=== PATIENT | female | born 1960 | race Caucasian/White ===

== ENCOUNTER 2016-06-03 15:41 | Inpatient (IN) | payer OTHER ==
--- NOTE | ~2016-06-03 | BMI ---
[facility] Nutrition Therapy DATE: 06/04/16 Patient: MALGORZATA Bah MUÑOZ Physician: JOSSELIN Address: [address] [place] [address] Room/Bed: [address] [place] [address], Zip: [place] [address] Admit Date: 06/03/16 Date of : [birth year] Height: 5 5 Weight: 269 122.4 HIGH BMI NOTE: DX: 55 yo female admitted for SOA ANTHROPOMETRICS: 5'5", WT: 122.4 kg, BMI: 44.9 INTERVENTION: 1. CC RECOMMENDATIONS: 1. Add a HH diet restriction to promote wt loss Respectfully, BINU ZAMORANO RD, LD Food and Nutritional Services [facility] cc: client file
--- NOTE | ~2016-06-03 | CO ---
Unit #: [id number] #: [id number] Patient: MALGORZATA ORDOÑEZ [id number] [address] [place], [place] [address] [id number] I MR#: [id number] NAME: MALGORZATA ORDOÑEZ. ROOM: 224 Age: 55 Sex: F Admission Date: 06/03/2016 : 1960 Attending Physician: Ranjit Haskins M.D. Primary Care Physician: No Primary Care Physician CONSULTATION REPORT HISTORY OF PRESENT ILLNESS Ms. Ordoñez is a 55-year-old white female that we have seen in the hospital for lung disease. She has been admitted in the past through HIPS service and Dr. Gutierrez. For some reason in January, we were called to admit the patient which we did. We were called this time. My partner was called last night to admit Ms. Ordoñez and admission orders were given. I am now seeing her the following day. Ms. Ordoñez, I believe, is seen in our office obstructive sleep apnea. She was to have a sleep study, pulmonary function tests. She also had a cavitary nodule that needed a followup CT scan. I do not know that she has followed up for all those studies at this point. Apparently, she is being followed by [facility] and has been diagnosed with pneumonia three times over the last month and a half. She tells me she has been on three courses of antibiotics and two courses of prednisone. She said she has not felt right since the first of the year. She has had some cough and wheezing and shortness of breath. She presented to the emergency room and according to the ER note was wheezing, had audible wheezing. Her O2 saturation was recorded at 95% on room air. Temperature was 99. Chest x-ray showed no infiltrate, mass, or congestion. She was given Solu-Medrol 125 mg IV and 40 mEq of potassium. Her potassium level was, I believe, 2.5. PAST MEDICAL HISTORY 1. COPD. 2. Diabetes. 3. Morbid obesity. 4. Obstructive sleep apnea. 5. Hyperlipidemia. 6. Anxiety and depression. 7. Seizure disorder. 8. Nonobstructive coronary artery disease. PAST SURGICAL HISTORY 1. Oophorectomy. 2. Cholecystectomy. 3. Colonoscopy. ALLERGIES Sulfa. HOME MEDICATIONS 1. Acetazolamide. 2. Xanax. 3. Norvasc. 4. Butorphanol spray nasally. Unit #: [id number] #: [id number] Patient: MALGORZATA ORDOÑEZ 5. Flexeril. 6. Pepcid. 7. Prozac. 8. Veramyst. 9. Glucotrol. 10. Lortab 5/325. 11. Glucophage. 12. Phenergan. 13. Seroquel. 14. Symbicort. 15. Topamax. 16. Ventolin. 17. Victoza. FAMILY HISTORY Negative for lung disease. SOCIAL HISTORY Recently a reformed smoker, used to smoke two packs a day. Denies alcohol or illicit drugs. Note: She has started smoking again but had stopped earlier this year. She smokes half pack a day now. REVIEW OF SYSTEMS CONSTITUTIONAL: No fevers and chills. HEENT: No rhinorrhea, nasal congestion. PULMONARY: Short of breath, wheezing. CARDIAC: No chest pain or palpitations. GASTROINTESTINAL: No nausea, vomiting. GENITOURINARY: No hematuria, dysuria. ENDOCRINE: Does have diabetes. No thyroid disease. NEUROLOGIC: No unilateral weakness or numbness. Does have history of seizures, seen by Dr. Rizvi in the past. She does have SANA, is not currently on CPAP. Apparently, had CPAP titration, she tells me. SKIN: No lesions. PHYSICAL EXAMINATION GENERAL: Morbidly obese female, currently no distress. Able to speak in complete sentences. VITAL SIGNS: Blood pressure is 121/65, pulse 95, respiratory rate 18, afebrile. HEENT: Normocephalic and atraumatic. Pupils equal, round, and reactive. Sclerae nonicteric. Nasal passages patent. Posterior pharynx clear. Mucous membranes moist. NECK: Supple. Trachea midline. No cervical or supraclavicular lymphadenopathy. LUNGS: Reveal mild expiratory wheeze bilaterally. Prolonged expiratory phase. CARDIAC: Regular rate and rhythm. Could not appreciate murmur, rub, or gallop. ABDOMEN: Nontender. Bowel sounds present. No hepatosplenomegaly. EXTREMITIES: Without clubbing, cyanosis, or edema. NEUROLOGIC: Awake, alert, oriented x3. Cranial nerves intact. Muscle strength symmetric bilaterally. PSYCHIATRIC: Affect calm. SKIN: Warm and dry. IMPRESSION 1. Acute exacerbation of chronic obstructive pulmonary disease. Unit #: [id number] #: [id number] Patient: MALGORZATA ORDOÑEZ 2. Acute and chronic respiratory failure. 3. History of cavitary nodule on previous CT scan from October 2015. 4. Obstructive sleep apnea, recently undergoing polysomnography and CPAP titration, awaiting CPAP from [email or web address]. 5. Diabetes. 6. Hypertension. 7. Morbid obesity. 8. Hypokalemia. PLAN 1. Potassium supplementation. 2. Bronchodilators. 3. Steroids. 4. Cover with antibiotics. 5. Sliding scale insulin. 6. Check chest CT for followup of cavitary nodule. 7. Will follow with you. Further recommendations. Dictated by... Eder Mendez/quincy TD: 06/06/2016 16:21 JOB #: [id number] CC: Eder Schulte M.D. [facility] CONSULTATION REPORT X Russell Snyder MD X CONSULTATION REPORT
--- NOTE | ~2016-06-03 | EKG ---
PATIENT: MALGORZATA MUÑOZ UNIT #: [id number] Ventricular Rate: 98 BPM Atrial Rate: 98 BPM P-R Interval: 188 ms QRS Duration: 118 ms Q-T Interval: 390 ms QTC Calculation(Bezet): 497 ms P [place]: 93 degrees Calculated R [place]: -67 degrees Calculated T [place]: 100 degrees Diagnosis Line: Normal sinus rhythm Diagnosis Line: Left axis deviation Diagnosis Line: Cannot rule out Inferior infarct , age Diagnosis Line: undetermined Diagnosis Line: Anterolateral infarct , age undetermined Diagnosis Line: Abnormal ECG Diagnosis Line: When compared with ECG of 09-FEB-2016 00:38, Diagnosis Line: Significant changes have occurred Diagnosis Line: Confirmed by JOHNNY POLLACK MD ([id number]) on 06/03/2016 Diagnosis Line: 5:48:50 PM INTERPRETING MD: JAKI LAMBERT
--- NOTE | ~2016-06-03 | CR63 ---
[facility] A Service of [facility] & [facility] RADIOLOGY TEXT RESULTS PATIENT: MALGORZATA MUÑOZ LOCATION: [facility] : [birth year] UNIT #: [id number] AGE: [address]: Ranjit Haskins MD SEX: F ORDER DR: [id number] [facility] [address] [facility]. [place], [place] [address] [id number] I MR#: [id number] Acc #: [id number] NAME: MALGORZATA MUÑOZ. : 1960 SEX: F STUDY DATE/TIME: 06/04/2016 7:36 UNIT: [facility] ROOM: [facility] STUDY DESCRIPTION: CR Chest 2 View Attending Physician: Ranjit Haskins M.D. Ordering Physician: Russell Snyder M.D. Primary Care Physician: Primary Care Physician No MEDICAL IMAGING REPORT This report is preliminary unless electronic signature is present EXAM Chest 2 views 06/04/2016 HISTORY Short of air. FINDINGS PA and lateral radiographs of the chest are presented. The patient gives additional history of shortness of air for 5 days. Prior history of asthma. Pneumonia. Comparison 06/03/2016. No acute pulmonary disease. No pleural effusion or pneumothorax. Lung volumes normal. No suspicious nodule. Heart and mediastinum normal in size and contour. Degenerative changes in the spine but no acute-appearing bony abnormality. Surgical clips in the upper abdomen probably from prior cholecystectomy. Dictated by... Eleazar Fernandez M.D. THIS IS AN ELECTRONICALLY VERIFIED REPORT Eleazar Fernandez M.D. at 06/04/2016 5:53 PM CHARLES/prabhakar TD: 06/04/2016 11:17 JOB #: [id number] MEDICAL IMAGING REPORT COPY
--- NOTE | ~2016-06-03 | CT57 ---
[facility] A Service of [facility] & [facility] RADIOLOGY TEXT RESULTS PATIENT: MALGORZATA MUÑOZ LOCATION: [facility] - : 62 UNIT #: [id number] AGE: [address]: Ranjit Haskins MD SEX: F ORDER DR: [id number] [facility] [address] [facility]. [place], [place] [address] [id number] I MR#: [id number] Acc #: [id number] NAME: MALGORZATA MUÑOZ. : 1960 SEX: F STUDY DATE/TIME: 06/04/2016 16:45 UNIT: C2A ROOM: [facility] STUDY DESCRIPTION: CT Chest Wo Cont Attending Physician: Ranjit Haskins M.D. Ordering Physician: Russell Snyder M.D. Primary Care Physician: No Primary Care Physician MEDICAL IMAGING REPORT This report is preliminary unless electronic signature is present EXAM CT chest without contrast. HISTORY Short of air for 5 days. Cough and wheezing. COMPARISON STUDIES CT chest without contrast is compared to CT chest, 11/10/2015 and 03/30/2014 and 12/22/2013. TECHNIQUE This CT exam was performed with one or more of the following radiation dose reduction techniques: automatic exposure control, adjustment of mA and/or kV according to patient size, and iterative reconstruction. FINDINGS A patchy nodule in the posterior right lower lobe measures 10 mm in maximal dimension, and is stable, compared to 12/22/2013 and 11/10/2015. No focal infiltrates. No pleural effusions. Minimal subsegmental atelectasis in the inferior lingula. No adenopathy. No pericardial thickening or effusion. Normal caliber thoracic aorta. Mild splenic enlargement measuring close to 15 cm in AP dimension. IMPRESSION 1. 10-mm part solid nodule in the posteroinferior right lower lobe is stable, compared to prior CTs, 11/10/2015 and 12/22/2013. Follow-up CT chest in 1 year is recommended to ensure stability. 2. No new pulmonary nodule, mass, or infiltrate. No pleural effusions. 3. No adenopathy. 4. Splenic enlargement measuring nearly 15 cm in AP dimension. Cholecystectomy. STS. [facility] A Service of [facility] & [facility] RADIOLOGY TEXT RESULTS PATIENT: MALGORZATA MUÑOZ LOCATION: [place] [address] : [birth year] UNIT #: [id number] AGE: [address]: Ranjit Haskins MD SEX: F ORDER DR: Dictated by... Bryce Anderson M.D. THIS IS AN ELECTRONICALLY VERIFIED REPORT Bryce Anderson M.D. at 06/05/2016 10:40 PM SINAN/fang TD: 06/05/2016 12:09 JOB #: [id number] MEDICAL IMAGING REPORT COPY
--- NOTE | ~2016-06-03 | DS ---
Unit #: [id number] #: [id number] Patient: MALGORZATA MUÑOZ [id number] [address] [place], [place] [address] [id number] I MR#: [id number] NAME: MALGORZATA MUÑOZ. ROOM: 224 Age: 55 Sex: F Admission Date: 06/03/2016 : 1960 Discharge Date: 06/09/2016 Attending Physician: Ranjit Haskins M.D. Primary Care Physician: Primary Care Physician No DISCHARGE SUMMARY DISCHARGE DIAGNOSES 1. Exacerbation of asthma. 2. Acute on chronic respiratory failure, hypoxemic. 3. History of right lower lobe nodule, stable, needs followup CT scan in 1 year. 4. Obstructive sleep apnea, not yet started on CPAP 15. 5. Diabetes mellitus. 6. Morbid obesity. 7. Seizure disorder. 8. Anxiety and depression. 9. Nonobstructive coronary artery disease. 10. Possible paradoxical vocal cord dysfunction. DISCHARGE MEDICATIONS Albuterol inhaler 2 puffs every 4 hours as needed, Symbicort 160/4.5 2 puffs b.i.d., Topamax 200 mg b.i.d., Prozac 40 mg daily, metformin 500 mg daily, Phenergan 25 q.6 hours as needed for nausea, Phenergan with dextromethorphan cough syrup 1 teaspoon q.8 hours as needed, Seroquel 300 mg q.h.s., Xanax 0.5 b.i.d., Diamox 250 mg b.i.d., Norvasc 10 mg daily, Veramyst nasal spray 2 sniffs to each nostril daily, Pepcid 10 mg p.o. daily, Lortab 5/325 every 12 hours as needed for pain, butorphanol one spray to each nostril as needed for migraines, Flexeril 10 q.8 hours as needed, Glucotrol 10 mg daily, and Victoza 0.6 mg subcu q.h.s., no antibiotics required as she has received 7 days already, prednisone 40 mg q.a.m. x3 days, decrease by 10 mg every 3 days until off. DISCHARGE INSTRUCTIONS She is to call to get her CPAP setup at home. She has home oxygen. She may wear that as needed. We will evaluate her as an outpatient if she still requires home oxygen. She is to follow up in my office in 1 month. She has been followed by [facility] and through Dr. Pate's office as her primary care physician, but is changing primary care physician, I have given her the name of primary medical, Dr. Thomason and she will contact him. We will not fill her any other medicines other than her pulmonary medications and we are not her primary care physicians. We are happy to see her for her pulmonary problems in the hospital and in the office. HOSPITAL COURSE A 55-year-old female with a history of obstructive lung disease who was admitted to our group for exacerbation of obstructive airways disease. In the past, she had been admitted through the HIPS office, but for some reason, the emergency room has called us for the last 2 times to admit her, although we are not her primary care physicians. She is followed in Unit #: [id number] #: [id number] Patient: TONIMALGORZATA G our office for obstructive sleep apnea. She also has a nodule in her right lower lobe and does have some obstructive airways disease. To my recollection, pulmonary function tests done most recently revealed no obstruction and a normal DLCO. She was recently diagnosed with obstructive sleep apnea and was set up to start CPAP, but presented to the hospital because of increased shortness of breath. On arrival, her chest x-ray showed no acute infiltrate, mass or congestion. O2 saturation was recorded at 95% on room air. She was in some respiratory distress with audible wheezing and use of accessory muscles. She was admitted. She has been treated with inhaled bronchodilators, IV Solu-Medrol, covered with antibiotics in the form of Zithromax. She was covered with sliding scale insulin and was started on DVT prophylaxis. She has had decrease in her wheezing. Arterial blood gases on room air were done on the and revealed pH of 7.39, pCO2 of 41, pO2 of 63.8. Chemistries were fairly unremarkable. Her last blood sugars were 251, 141, 259 and 146. She has been advised to stay on a diabetic diet. Her steroids have been weaned. She will be tapered off prednisone. She did have a CT scan of the chest done for her right lower lobe nodule, which revealed a 10 mm solid nodule in the posteroinferior right lower lobe, stable compared to 10/2015 and 11/2013. A followup CT was recommended in 1 year. She will follow up in our office. We will evaluate for home O2. She will follow up in the office in 1 month. We will check ambulatory pulse oximetry and monitor compliant step for obstructive sleep apnea. Dictated by... Eder Mendez/gaby TD: 06/11/2016 04:48 JOB #: [id number] CC: Del Thomason M.D. DISCHARGE SUMMARY X Russell Snyder MD X DISCHARGE SUMMARY
--- NOTE | ~2016-06-03 | CR72 ---
[facility] A Service of [facility] & [facility] RADIOLOGY TEXT RESULTS PATIENT: MALGORZATA MUÑOZ LOCATION: [place] [address] : [birth year] UNIT #: [id number] AGE: [address]: Ranjit Haskins MD SEX: F ORDER DR: [id number] [facility] [address] [facility]. [place], [place] [address] [id number] I MR#: [id number] Acc #: [id number] NAME: MALGORZATA MUÑOZ. : 1960 SEX: F STUDY DATE/TIME: 06/03/2016 15:00 UNIT: CEDOF ROOM: 35634 STUDY DESCRIPTION: CR Chest Single View Portable Attending Physician: Ranjit Haskins M.D. Ordering Physician: Ed Anish Medley M.D. Primary Care Physician: No Primary Care Physician MEDICAL IMAGING REPORT This report is preliminary unless electronic signature is present EXAM Single view chest INDICATIONS Shortness of air for 5 days. Hypertension. FINDINGS Single portable AP view of the chest compared to 02/09/2016. Heart and mediastinal contours normal. The lungs are clear. No pleural effusion. IMPRESSION No acute cardiopulmonary findings. Dictated by... Ramirez Muñoz M.D. THIS IS AN ELECTRONICALLY VERIFIED REPORT Ramirez Muñoz M.D. at 06/04/2016 8:18 AM HASEEB/vasile TD: 06/03/2016 19:01 JOB #: [id number] MEDICAL IMAGING REPORT COPY
[~2016-06-03 15:41] MED LIST: ACCUPRIL PO; ACETAMINOPHEN PO; ACETAMINOPHEN325 MG PO; ACETAMINOPHEN650 M3 PO; ACETAZOLAMIDE PO; ACETAZOLAMIDE125 MG PO; ACETAZOLAMIDE250 MG PO; ACETAZOLAMIDE500 M1 PO; ACID CONTROLLER20 MG PO; ACTOS PO; ALB/IPRATROPIUM/1 E1 INH; ALB/IPRATROPIUM/1 E2 INH; ALBUTEROL; ALBUTEROL MININEB NEB; ALBUTEROL17 G1 IH; ALBUTEROL17 GM INH; ALPRAZOLAM PO; ALPRAZOLAM0.5 MG; AMLODIPINE BESY10 MG PO; ASMACORT; ASMANEX0.24 G1 IH; ASPIRIN81 M1 PO; ASTHMACORT; ASTHMACORT INHALER INH; ASTHMANEX; ATENOLOL PO; ATROVENT NEB; AUGMENTIN875 MG PO; BACLOFEN10 MG PO; BUTORPHANOL10 MG/ML NS; COMBIVENT MININEB INH; COMBIVENT RESPIM4 GM; DIAMOX PO; DIAMOX SEQUELS500 MG PO; DOXYCYCLINE HY100 M3 PO; DOXYCYCLINE PO; DUONEB 2.5-0.5 M3 ML; DUONEB 2.5-0.5 M3 ML NEB; DUONEB INH; DUONEB NEB; ESGIC CAPSULE1 CAP PO; FAMOTIDINE PO; FAMOTIDINE20 M1 PO; FAMOTIDINE20 MG PO; FELDENE20 MG PO; FLEXERIL PO; FLEXERIL10 MG PO; FLONASE 0.05% N16 G1; FLOVENT HFA12 G1; FLUTICASONE PRO16 GM NS; GLIPIZIDE10 MG PO; GLUCOPHAGE500 M1 PO; GLUCOTROL PO; GLUCOTROL10 MG PO; Glipizide PO; HUMALOG KW200 UNIT/1 SUBQ; HUMIBID-LA600 MG PO; HUMULIN R INSULIN SUBQ; HUMULIN R100 U/ML SUBQ; HYDROCODONE APAP; HYDROCODONE-APA1 T30 PO; HYDROCODONE-APA1 T43 PO; HYDROCODONE/A1 UDTA2 PO; K-DUR10 MEQ PO; K-DUR20 ME1; KEPPRA1000 MG PO; KEPPRA750 MG PO; LEVAQUIN PO; LEVAQUIN750 M1 PO; LEVAQUIN750 MG PO; LEVETIRACETAM1000 MG PO; LORTAB 5/500 TA1 TA2 PO; LORTAB 7.51 TAB 7.5/ PO; METFORMIN HCL500 M1 PO; MININEB INH; MORGIDOX100 MG PO; NICOTINE TRANSD14 MG EXT; NORVASC10 MG PO; NOVOLOG100 U/M1 SUBQ; OXYGEN; PEPCID AC20 MG PO; PERCOCET5/325 PO; PERFOROMIS20 MCG/2 M; PHENERGAN PO; PHENERGAN25 M1 PO; PHENERGAN25 MG PO; PRAVACHOL PO; PRAVACHOL20 MG PO; PRAVASTATIN SOD20 MG PO; PREDNISONE PO; PREDNISONE10 MG PO; PREDNISONE10 MG/DOSE; PREDNISONE10 MG/DOSE PO; PROMETHAZINE W118 M1 PO; PROTONIX PO; PROVENTIL HFA INH; PROZAC PO; PROZAC40 M1 PO; PROZAC40 MG PO; PULMICORT180 MCG/AE IH; QVAR 80 MCG INH; QVAR7.3 G1 IH; REGLAN10 MG PO; ROBITUSSIN; SEROQUEL PO; SEROQUEL XR150 MG PO; SEROQUEL XR200 MG; SEROQUEL XR200 MG PO; SEROQUEL XR300 M1 PO; SEROQUEL XR300 MG PO; SIMVASTATIN20 MG PO; SKELAXIN PO; SPIRIVA18 MCG INH; STADOL NASAL SPRAY; STADOL NS; STADOL NS25 MG; STADOL NS25 MG NS; SYMBICORT INH; SYMBICORT INHALER; SYMBICORT80 INH; TOPAMAX PO; TOPAMAX200 MG PO; TOPIRAMATE200 M1 PO; TOPIRAMATE25 MG PO; TOPIRAMATE50 MG PO; TRAZODONE PO; ULTRAM PO; VANTIN100 MG PO; VENTOLIN5 MG/ML; VIBRAMYCIN100 M1 PO; VICODIN 5-3001 EACH PO; VITAMIN D1000 UNI1; VITAMIN D2400 UNIT; XANAX0.5 M1 PO; XANAX1 MG PO; ZANAFLEX PO; ZITHROMAX PO; ZOCOR20 MG PO; [UNRECOGNIZED DRUG - OTHER] IH; [UNRECOGNIZED DRUG - OTHER] INH
[2016-06-03 15:50] LABS: BASOPHIL# 0.1 X10e3 (0-0.3); BASOPHIL% 0.7 % (0-2.5); EOSINOPHIL# 0.5 X10e3 (0-0.7); EOSINOPHIL% 4.4 % (0.0-7.0); HEMATOCRIT 49.3 % (35.0-45.0); HEMOGLOBIN 16.1 gm/dL (12.0-16.0); LYMPHOCYTE# 2.7 X10e3 (1.0-3.5); LYMPHOCYTE% 22.3 % (17.0-45.0); MEAN CELL VOLUME 91.4 FL (83-96); MEAN CORPUSCULAR HEMOGLOBIN 29.9 PG (28-34); MEAN CORPUSCULAR HGB CONC 32.7 g/dL (30-36); MEAN PLATELET VOLUME 8.4 FL (6.5-11.5); MONOCYTE# 0.9 X10e3 (0-1.0); MONOCYTE% 7.9 % (3.0-12.0); NEUTROPHIL# 7.7 X10e3 (1.5-7.1); NEUTROPHIL% 64.7 % (40-75); PLATELET COUNT 288 X10e3 (140-420); RED CELL DISTRIBUTION WIDTH 14.7 % (11.0-15.5); WHITE BLOOD COUNT 11.9 X10e3 (4.0-10.5)
[2016-06-03 15:51] LABS: POC - CKMB <1.0 ng/mL (0.0-7.9); POC - TROPONIN <0.05 ng/mL (<=0.05)
[2016-06-03 15:53] LABS: DIFF IND NO
[2016-06-03 16:17] LABS: ALBUMIN SERUM 3.6 g/dL (3.5-5.0); ALKALINE PHOSPHATASE 134 U/L (32-92); ALT (SGPT) 17 U/L (10-40); AST (SGOT) 20 U/L (10-42); BILIRUBIN, DIRECT 0.1 mg/dL (0.0-0.2); BILIRUBIN,INDIRECT 0.5 mg/dL (0.0-0.9); BILIRUBIN,TOTAL 0.6 mg/dL (0.2-2.0); BLOOD UREA NITROGEN 10 mg/dL (9-23); CARBON DIOXIDE 25 mmol/L (22-31); CHLORIDE 101 mmol/L (100-111); GLOM FILT RATE Estimated ABOVE60 mL/min (>60); GLUCOSE FASTING 168 mg/dL (70-110); PROTEIN TOTAL SERUM 7.5 g/dL (6.0-8.3); SODIUM 137 mmol/L (135-145)
[2016-06-03 16:20] LABS: POTASSIUM 2.5 mmol/L (3.5-5.1)
[2016-06-03] MEDS ORDERED: ACETAZOLAMIDE250 MG PO (16:48)
[2016-06-03] MEDS ORDERED: XANAX0.5 MG PO (16:49)
[2016-06-03] MEDS ORDERED: NORVASC10 MG PO (16:49)
[2016-06-03] MEDS ORDERED: BUTORPHANOL10 MG/ML (16:51)
[2016-06-03] MEDS ORDERED: FAMOTIDINE PO (16:52)
[2016-06-03] MEDS ORDERED: FLEXERIL10 MG PO (16:52)
[2016-06-03] MEDS ORDERED: VERAMYST10 GM (16:53)
[2016-06-03] MEDS ORDERED: PROZAC40 MG PO (16:53)
[2016-06-03] MEDS ORDERED: GLUCOTROL10 MG PO (16:54)
[2016-06-03] MEDS ORDERED: GLUCOPHAGE500 M1 PO (16:54)
[2016-06-03] MEDS ORDERED: LORTAB 5-325 M1 EACH PO (16:54)
[2016-06-03] MEDS ORDERED: PHENERGAN25 M1 PO (16:55)
[2016-06-03] MEDS ORDERED: PROMETHAZINE-D473 ML PO (16:56)
[2016-06-03] MEDS ORDERED: SEROQUEL XR300 M1 PO (16:56)
[2016-06-03] MEDS ORDERED: SYMBICORT INH (16:57)
[2016-06-03] MEDS ORDERED: TOPAMAX200 MG PO (16:57)
[2016-06-03] MEDS ORDERED: ALBUTEROL17 GM INH (16:58)
[2016-06-03] MEDS ORDERED: VICTOZA0.6 MG/0.1 SUBQ (17:00)
[2016-06-03 17:26] LABS: POC - CKMB <1.0 ng/mL (0.0-7.9); POC - TROPONIN <0.05 ng/mL (<=0.05)
[2016-06-04 18:05] LABS: BLOOD UREA NITROGEN 12 mg/dL (9-23); BUN/CREATININE RATIO 13.33; CALCIUM SERUM 8.8 mg/dL (8.4-10.2); CARBON DIOXIDE 23 mmol/L (22-31); CHLORIDE 109 mmol/L (100-111); CREATININE SERUM 0.9 mg/dL (0.6-1.4); GLOM FILT RATE Estimated ABOVE60 mL/min (>60); GLUCOSE FASTING 225 mg/dL (70-110); MAGNESIUM 1.5 mg/dL (1.6-3.0); POTASSIUM 3.2 mmol/L (3.5-5.1); SODIUM 140 mmol/L (135-145)
[2016-06-05 02:12] LABS: BLOOD UREA NITROGEN 16 mg/dL (9-23); BUN/CREATININE RATIO 17.77; CALCIUM SERUM 8.2 mg/dL (8.4-10.2); CARBON DIOXIDE 23 mmol/L (22-31); CHLORIDE 111 mmol/L (100-111); CREATININE SERUM 0.9 mg/dL (0.6-1.4); GLOM FILT RATE Estimated ABOVE60 mL/min (>60); GLUCOSE FASTING 380 mg/dL (70-110); MAGNESIUM 1.8 mg/dL (1.6-3.0); POTASSIUM 3.9 mmol/L (3.5-5.1); SODIUM 138 mmol/L (135-145)
[2016-06-06 07:05] LABS: BLOOD UREA NITROGEN 23 mg/dL (9-23); CALCIUM SERUM 8.3 mg/dL (8.4-10.2); CARBON DIOXIDE 23 mmol/L (22-31); CHLORIDE 109 mmol/L (100-111); GLOM FILT RATE Estimated ABOVE60 mL/min (>60); GLUCOSE FASTING 397 mg/dL (70-110); MAGNESIUM 2.1 mg/dL (1.6-3.0); POTASSIUM 3.8 mmol/L (3.5-5.1); SODIUM 140 mmol/L (135-145)
[2016-06-07 06:46] LABS: POTASSIUM 3.6 mmol/L (3.5-5.1)
[2016-06-07 12:10] LABS: ARTERIAL BLD GAS O2 SATURATION 92.2 % (90.0-100.0); ARTERIAL BLOOD GAS CARBOXY HB 0.4 %sat (0.0-9.0); ARTERIAL BLOOD GAS HCO3 25.3 mmol/L; ARTERIAL BLOOD GAS MET HB 0.9 %sat (0.0-2.0); ARTERIAL BLOOD GAS PCO2 41.5 mmHg (35.0-45.0); ARTERIAL BLOOD GAS pH 7.394 (7.350-7.450)
[2016-06-07 12:11] LABS: ARTERIAL BLOOD GAS ALLEN TEST NORMAL; ARTERIAL BLOOD GAS ART SITE RIGHT RADIAL; ARTERIAL BLOOD GAS DELIVERY ROOM AIR; ARTERIAL BLOOD GAS PO2 63.8 mmHg (80.0-100); ARTERIAL DRAW? YES
[2016-06-08 09:31] LABS: MAGNESIUM 2.1 mg/dL (1.6-3.0); POTASSIUM 3.7 mmol/L (3.5-5.1)
[2016-06-09 08:10] LABS: MAGNESIUM 2.1 mg/dL (1.6-3.0)
== END 2016-06-09 18:00 | disposition home or self-care (01) | DRG 189 ==
LOC: CED 15:41 → CEDOF 17:15 → C2A 19:57
PROVIDERS: Emergency Medicine; Internal Medicine
DX: J96.21 Acute and chronic respiratory failure with hypoxia (principal); R56.9 Unspecified convulsions; J44.1 Chronic obstructive pulmonary disease with (acute) exacerbation; J45.901 Unspecified asthma with (acute) exacerbation; Z68.41 Body mass index [BMI] 40.0-44.9, adult; F17.210 Nicotine dependence, cigarettes, uncomplicated; R91.1 Solitary pulmonary nodule; G47.33 Obstructive sleep apnea (adult) (pediatric); E66.01 Morbid (severe) obesity due to excess calories; F41.9 Anxiety disorder, unspecified; F32.9 Major depressive disorder, single episode, unspecified; I25.10 Atherosclerotic heart disease of native coronary artery without angina pectoris; J38.3 Other diseases of vocal cords; I10 Essential (primary) hypertension; E78.5 Hyperlipidemia, unspecified; E87.6 Hypokalemia; K21.9 Gastro-esophageal reflux disease without esophagitis; E11.9 Type 2 diabetes mellitus without complications; Z79.84 Long term (current) use of oral hypoglycemic drugs; Z88.2 Allergy status to sulfonamides; Z90.49 Acquired absence of other specified parts of digestive tract
CPT/HCPCS: 36415; 36600; 71010; 71020; 71250; 80048; 80076; 82553; 82803; 82947; 83735; 83880; 84132; 84484; 85025; 93005; 94640; 94760; 96374; 99285; J0456; J1815; J2920; J2930; J3475

== ENCOUNTER 2016-07-27 17:28 | Inpatient (IN) | payer OTHER ==
--- NOTE | ~2016-07-27 | CR63 ---
[facility] A Service of [facility] & [facility] RADIOLOGY TEXT RESULTS PATIENT: MALGORZATA MUÑOZ LOCATION: [place] [address] : [birth year] UNIT #: [id number] AGE: [address]: Russell Snyder MD SEX: F ORDER DR: [id number] [facility] [address] [facility]. [place], [place] [address] [id number] I MR#: [id number] Acc #: [id number] NAME: MALGORZATA MUÑOZ. : 1960 SEX: F STUDY DATE/TIME: 08/09/2016 8:20 UNIT: [facility] ROOM: [facility] STUDY DESCRIPTION: CR Chest 2 View Attending Physician: Russell Snyder M.D. Ordering Physician: Mandy Kuhn D.O. Primary Care Physician: Patito Gutierrez M.D. MEDICAL IMAGING REPORT This report is preliminary unless electronic signature is present EXAM PA and lateral chest. HISTORY Shortness of breath and elevated blood pressure since July 2. TECHNIQUE PA and lateral views of the chest are obtained. FINDINGS The cardiovascular configuration of the chest is normal and the lungs are clear. CONCLUSION 1. No active disease. Dictated by... Eleazar Barnett M.D. THIS IS AN ELECTRONICALLY VERIFIED REPORT Eleazar Barnett M.D. at 08/10/2016 7:27 AM SB/martha TD: 08/09/2016 13:20 JOB #: [id number] MEDICAL IMAGING REPORT Page 1 of 1 COPY
--- NOTE | ~2016-07-27 | BMI ---
[facility] Nutrition Therapy DATE: 07/28/16 Patient: MALGORZATA Bah MUÑOZ Physician: CHERI Address: [address] [place] [address] Room/Bed: [address], Zip: [place] [address] Admit Date: 07/27/16 Date of : [birth year] Height: 5 4 Weight: 233 106 HIGH BMI NOTE: DX: 55 Y.O. FEMALE ADMITTED FOR RESP FAILURE ANTHROPOMETRICS: 5'4", WT: 233# (106 KG), BMI: 40.0 DIET: NO DIET ORDER INTERVENTION: 1. NO DIET ORDER RECOMMENDATIONS: 1. ONCE MEDICALLY FEASIBLE, ADVANCE DIET INDICATED TO CC+HH TO PROMOTE GRADUAL WEIGHT LOSS TOWARDS HEALTHY BMI (19.0-25.0) OR +/-10%IBW RD WILL F/U PER PROTOCOL Respectfully, NEAL WHITTEN MS, RD, LD Food and Nutritional Services [facility] cc: client file
--- NOTE | ~2016-07-27 | A ---
[facility] Nutrition Therapy DATE: 08/06/16 Patient: MALGORZATA Bah MUÑOZ Physician: CHERI Address: [address] [place] [address] Room/Bed: [address] [place] [address], Zip: [place] [address] Admit Date: 07/27/16 Date of : [birth year] Height: 5 4 Weight: 256 116.2 NUTRITIONAL ASSESSMENT: REASON: LOS ASSESSMENT PT IS 55 Y.O. FEMALE ADMITTED FOR RESP FAILURE, ASTHMA EXAC PMH: SANA, COPD, DM, ASTHMA, HLD, ANXIETY, DEPRESSION, CAD, SEIZURE DISORDER, CHOLY Anthropometrics: 5'4", WT: 240# (PER PT) (109 KG), BMI: 41.2 -WEIGHTS HAVE RANGED 233-256# SINCE ADMIT Labs: GLU: 281, BUN: 32, ALB: 3.5 (ADMIT), A1c: 6.6 Meds: LEVEMIR, SOLU-MEDROL, NOVOLOG, GLUCOTOL, PEPCID, PHENERGAN I/O & Bowel function: 2735/2203 Skin Integrity: BILATERAL FEET TRACE EDEMA Assessment: CHART REVIEWED AND EVENTS NOTED. PT SEEN FOR LENGTH OF STAY ASSESSMENT (10 DAYS). PT REPORTS GOOD PO INTAKE AND APPETITE, NO C/O N/V/D. PT ADDS "I LOVE BREAKFAST FOODS". THIS RD PROVIDED WRITTEN AND VERBAL CC+ DIET EDUCATION. RD PROVIDED LIST OF FOODS TO AVOID/LIMIT AND FOODS TO EAT MORE OFTEN. RD EMPHASIZED IMPORTANCE OF ELIMINATING SUGAR-SWEETENED BEVERAGES. PT REPORTD DRINKING NUMEROUS DIET SODAS DAILY. RD ENCOURAGED WATER INTAKE (+ WAYS OF ADDING FLAVOR). PT DEMONSTRATED UNDERSTANDING OF THE TOPIC. PT REPORTED NO DIET QUESTIONS AT THIS TIME. RD TO REMAIN AVAILABLE. Dx: EXCESSIVE CALORIC INTAKE R/T LIFESTYLE AEB BMI OF 41.2. -ALTERED NUTRIENT UTILIZATION R/T PMH AEB NEED FOR THERAPEUTIC DIET ORDER. Intervention: 1. CC DIET 2. WRITTEN & VERBAL CC DIET EDUCATION Monitoring, Evaluation and Goals: 1. ORAL INTAKE; CONSUME >50% OF MEALS W/NO C/O N/V/D 2. WEIGHTS; PROMOTE GRADUAL WEIGHT LOSS TOWARDS HEALTHY BMI (19.0-25.0) OR +/-10%IBW 3. LABS; WNL MONITOR: -PO INTAKE/APPETITE -WEIGHTS [facility] Nutrition Therapy DATE: 08/06/16 Patient: MALGORZATA MUÑOZ Physician: CHERI Address: [address] [place] [address] Room/Bed: [address] [place] [address], Zip: [place] [address] Admit Date: 07/27/16 Date of : [birth year] Height: 5 4 Weight: 256 116.2 -EDUCATION NEEDS Recommendations: 1. RECOMMEND TO ADD HH TO CURRENT DIET ORDER ABOVE TO PROMOTE GRADUAL WEIGHT LOSS TOWARDS HEALTHY BMI (19.0-25.0) OR +/-10%IBW 2. CONSULT RD IF FURTHER DIET EDUCATION REQUESTED RD WILL F/U PER PROTOCOL PT IS MILDLY COMPROMISED Respectfully, NEAL WHITTEN MS, RD, LD Food and Nutritional Services [facility] cc: client file
--- NOTE | ~2016-07-27 | HP ---
Unit #: [id number] #: [id number] Patient: MALGORZATA MUÑOZ [id number] [address] [place], [place] [address] [id number] I MR#: [id number] NAME: MALGORZATA MUÑOZ. ROOM: [facility] Age: 55 Sex: F Admission Date: 07/27/2016 : 1960 Attending Physician: Russell Snyder M.D. Primary Care Physician: Patito Gutierrez M.D. HISTORY AND PHYSICAL DIAGNOSES 1. Asthma exacerbation. 2. Acute and chronic hypoxemic respiratory failure. 3. History of right lower lobe nodule, needs followup CT scan in May 2017. 4. History of obstructive sleep apnea, currently maintained on CPAP 15. 5. Diabetes. 6. Morbid obesity. 7. Seizure disorder. 8. Anxiety and depression. 9. Nonobstructive coronary artery disease. HISTORY OF PRESENT ILLNESS She presented with a three-day history of increased shortness of breath with wheezing, cough, brownish sputum. No fever or chills. She has had no hemoptysis or chest pain. In the emergency room, she was noted to be wheezing, was able to speak two or three words at a time. Her O2 saturation on 4 L was 97%, respiratory rate was 26, blood pressure was 157/104, pulse was 103, temperature was afebrile. Lab work revealed arterial blood gas on 6 L of 7.28, pCO2 of 56, pO2 of 140. On subsequent followup this morning after being on BiPAP but on 6 L was 7.26, pCO2 of 57, pO2 of 108. Glucose was 181, creatinine 0.7. Lactic acid 1.2. Coags were normal. Cardiac enzymes were negative. White count was 15,300, hematocrit 45.7, platelet count normal. We were called to admit the patient, although we are not her primary care physicians. She has previously been admitted by Dr. Hines and Dr. Black. PAST MEDICAL HISTORY 1. COPD. 2. Bronchospasm. 3. Diabetes. 4. Morbid obesity. 5. Obstructive sleep apnea on CPAP 15. 6. Hyperlipidemia. 7. Depression and anxiety. 8. Seizure disorder. 9. Nonobstructive coronary artery disease. PAST SURGICAL HISTORY 1. Oophorectomy. 2. Cholecystectomy. 3. Colonoscopy. ALLERGIES Unit #: [id number] #: [id number] Patient: MALGORZATA MUÑOZ Sulfa. HOME MEDICATIONS 1. Acetazolamide. 2. Norvasc. 3. Butorphanol. 4. Flexeril. 5. Pepcid. 6. Prozac. 7. Veramyst. 8. Glucotrol. 9. Glucophage. 10. Phenergan. 11. Seroquel. 12. Symbicort. 13. Topamax. 14. Ventolin. 15. Victoza. FAMILY HISTORY Negative for lung disease. SOCIAL HISTORY Stopped smoking about a week ago. Has smoked two packs a day, smoked for a long time. Denies alcohol or illicit drugs. Says she does not take narcotics but does take Klonopin. REVIEW OF SYSTEMS CONSTITUTIONAL: No fevers, chills. HEENT: No rhinorrhea, nasal congestion. PULMONARY: As noted. CARDIAC: No chest pain. GASTROINTESTINAL: Some nausea. No vomiting. GENITOURINARY: No hematuria, dysuria. ENDOCRINE: Does have a history of diabetes. No thyroid disease. NEUROLOGIC: Some history of seizure, has seen Dr. Rizvi in the past. Had an episode where she felt funny and urinated on herself and only lasted for a second or two prior to this admission. SKIN: No rashes. PHYSICAL EXAMINATION GENERAL: White female in no distress. VITAL SIGNS: Blood pressure 126/77, pulse 81, respiratory rate 11, afebrile. HEENT: Normocephalic and atraumatic. Pupils equal, round, and reactive. Sclerae nonicteric. Nasal passages patent. Posterior pharynx crowded. Mallampati III. Edentulous. NECK: Supple. Trachea midline. No cervical or supraclavicular lymphadenopathy. LUNGS: Reveal expiratory wheezes bilaterally. CARDIAC: Heart sounds distant. Regular rate and rhythm. Could not appreciate murmur, rub, or gallop. ABDOMEN: Nontender. Bowel sounds present. No hepatosplenomegaly. EXTREMITIES: Without clubbing, cyanosis, or edema. NEUROLOGIC: Awake, alert, oriented x3. Cranial nerves grossly intact. Muscle strength symmetric bilaterally. Affect calm. SKIN: Warm and dry. Unit #: [id number] #: [id number] Patient: MALGORZATA MUÑOZ DIAGNOSTIC STUDIES LABORATORY: Laboratory studies personally reviewed. IMAGING: Chest x-ray: Personally reviewed. No infiltrate, mass, or congestion. IMPRESSION 1. Acute and chronic respiratory failure: Currently maintained on oxygen at home. 2. Chronic obstructive pulmonary disease exacerbation. 3. Obstructive sleep apnea on CPAP. 4. Respiratory acidosis, secondary to bronchospasm. 5. Nonobstructive coronary artery disease. 6. Diabetes. 7. Hypertension. 8. Morbid obesity. 9. Seizure disorder. 10. Depression and anxiety. PLAN 1. Inhaled bronchodilators. 2. IV Solu-Medrol. 3. Cover with antibiotics. 4. BiPAP for ventilatory support. 5. Deep venous thrombosis prophylaxis. 6. Sliding scale insulin. 7. Further recommendations pending this. Dictated by Russell Snyder M.D. GUILLAUME/quincy TD: 07/28/2016 14:27 JOB #: [id number] HISTORY AND PHYSICAL Page 1 of 1 X Russell Snyder MD X HISTORY AND PHYSICAL
--- NOTE | ~2016-07-27 | DS ---
Unit #: [id number] #: [id number] Patient: MALGORZATA ORDOÑEZ [id number] [address] [place], [place] [address] [id number] I MR#: [id number] NAME: MALGORZATA ORDOÑEZ ROOM: 557 Age: 55 Sex: F Admission Date: 07/27/2016 : 1960 Discharge Date: Attending Physician: Russell Snyder M.D. Primary Care Physician: Patito Gutierrez M.D. DISCHARGE SUMMARY DISCHARGE DIAGNOSES 1. Acute on chronic hypoxemic hypercarbic respiratory failure. 2. Chronic obstructive pulmonary disease exacerbation. 3. Obstructive sleep apnea, maintained on CPAP. 4. Respiratory acidosis secondary to chronic obstructive pulmonary disease. 5. Nonobstructive coronary artery disease. 6. Diabetes mellitus. 7. Hypertension. 8. Seizure disorder. 9. Anxiety, depression. 10. Human immunodeficiency virus positive antigen, further workup pending. DISCHARGE MEDICATIONS Home O2, acetazolamide 250 mg b.i.d., Norvasc 10 mg daily, butorphanol one spray each nostril daily for her migraine headaches, Flexeril 10 mg p.o. q.8 hours, Prozac 40 mg b.i.d., Veramyst nasal spray two sniffs each nostril daily, Glucotrol 10 mg daily, Glucophage 500 mg daily, Phenergan 25 p.o. every 6 hours as needed, Seroquel XR 300 mg q.h.s., Symbicort 160/4.5 two puffs b.i.d., Topamax 200 mg b.i.d., Ventolin 2 puffs every 4 hours as needed, Victoza 0.6 mg subcu at bedtime, sliding scale insulin per protocol. Prednisone 40 mg for four days, decreased by 10 mg every four days until off. FOLLOWUP Follow up with Dr. Gutierrez in 1 week for results of HIV testing. Follow up with Dr. Snyder in 3 weeks for underlying COPD and SANA. HOSPITAL COURSE The patient admitted to the hospital with exacerbation of COPD and acute hypoxemic hypercarbic respiratory failure. She was initially treated with BiPAP, inhaled bronchodilators, IV steroids. She was covered with antibiotics in the form of Zithromax and Rocephin. She was placed on sliding scale insulin, DVT prophylaxis. She had slow, but gradual improvement. Mucomyst was added to her regimen with continued improvement. Her steroids were weaned. A tech was drawing blood and stuck herself and in the process of HIV test was done on Ms. Ordoñez which returned HIV antigen positive. Infectious Disease was consulted and studies are pending as far as confirmation of that positive study and viral load. Ms. Ordoñez denied any history of sexual contact or IV drug use or blood infusion. Her lungs have been sufficiently improved where she can be discharged on tapering dose of steroids and continue her routine medications. She will need to follow up with Dr. Gutierrez regarding Unit #: [id number] #: [id number] Patient: MALGORZATA ORDOÑEZ the HIV testing results if it is confirmed that she is HIV positive, she should follow up with the [facility]. We would prefer that she be admitted to primary care as opposed to consulting service, henceforward, she has been previously always admitted to primary care physician. Dictated by... Russell Snyder M.D. GUILLAUME/gaby TD: 08/07/2016 04:34 JOB #: [id number] DISCHARGE SUMMARY Page 1 of 1 X Russell Snyder MD X DISCHARGE SUMMARY
--- NOTE | ~2016-07-27 | EKG ---
PATIENT: MALGORZATA MUÑOZ UNIT #: [id number] Ventricular Rate: 96 BPM Atrial Rate: 96 BPM P-R Interval: 168 ms QRS Duration: 98 ms Q-T Interval: 372 ms QTC Calculation(Bezet): 469 ms P [place]: 87 degrees Calculated R [place]: -55 degrees Calculated T [place]: 91 degrees Diagnosis Line: Normal sinus rhythm Diagnosis Line: Left axis deviation Diagnosis Line: Pulmonary disease pattern Diagnosis Line: Left ventricular hypertrophy with repolarization Diagnosis Line: abnormality Diagnosis Line: Abnormal ECG Diagnosis Line: When compared with ECG of 03-JUN-2016 15:05, Diagnosis Line: Questionable change in initial forces of Lateral Diagnosis Line: leads Diagnosis Line: Confirmed by JOHNNY POLLACK MD ([id number]) on 07/28/2016 Diagnosis Line: 9:39:31 AM INTERPRETING MD: JAKI LAMBERT
--- NOTE | ~2016-07-27 | CR72 ---
[facility] A Service [facility] RADIOLOGY TEXT RESULTS PATIENT: MALGORZATA MUÑOZ LOCATION: [facility] : 62 UNIT #: [id number] AGE: [address]: Russell Snyder MD SEX: F ORDER DR: [id number] [facility] [address] [facility]. [place], [place] [address] [id number] MR#: [id number] #: [id number] NAME: MALGORZATA MUÑOZ. : 1960 SEX: F STUDY DATE/TIME: 07/27/2016 18:00 UNIT: CEDOF ROOM: 84310 STUDY DESCRIPTION: CR Chest Single View Portable Attending Physician: Russell Snyder M.D. Ordering Physician: Jerson Diane M.D. Primary Care Physician: Patito Gutierrez M.D. MEDICAL IMAGING REPORT This report is preliminary unless electronic signature is present EXAM Portable chest. DATE OF EXAM 07/27/2016 HISTORY Shortness of breath, dyspnea and wheezing since 07/26/2016. Benign essential hypertension, asthma and wheezing, COPD, smoking history. FINDINGS A single AP portable view of the chest shows both lungs to be clear. The heart is normal in size. The mediastinal contour is normal. No significant bone abnormalities are seen. IMPRESSION Normal portable chest. Dictated by... Sukhdev Arellano M.D. THIS IS AN ELECTRONICALLY VERIFIED REPORT Sukhdev Arellano M.D. at 07/28/2016 2:13 PM KRT/bradley TD: 07/27/2016 21:29 JOB #: [id number] MEDICAL IMAGING REPORT [facility] A [facility] RADIOLOGY TEXT RESULTS PATIENT: MALGORZATA MUÑOZ [facility] [birth year] UNIT #: [id number] AGE: [address]: Russell Snyder MD SEX: F ORDER DR: Page 1 of 1 COPY
--- NOTE | ~2016-07-27 | CO ---
Unit #: [id number] #: [id number] Patient: LOLA ORDOÑEZ [id number] [address] [place], [place] [address] [id number] I MR#: [id number] NAME: LOLA ORDOÑEZ ROOM: 557 Age: 55 Sex: F Admission Date: 07/27/2016 : 1960 Attending Physician: Russell Snyder M.D. Primary Care Physician: Patito Gutierrez M.D. Requesting Physician: Russell Snyder M.D. Consultation Date: 07/29/2016 CONSULTATION REPORT REASON FOR CONSULTATION Medical management. HISTORY OF PRESENT ILLNESS Ms. Lola Ordoñez is a 55-year-old female with the known history of COPD, asthma, obesity, diabetes, seizure disorder, coronary artery disease, and obstructive sleep apnea, who was apparently admitted by Pulmonary service to ICU secondary to acute exacerbation of asthma and COPD along with some bronchitis versus pneumonia which resulted in the acute hypoxemic respiratory failure. The patient was initially maintained on BiPAP. She currently feels better. She did present with some increasing shortness of air and dyspnea along with some cough with some brownish sputum. She currently denies any active chest pain. Denies any headache, dizziness, fever, chills, nausea, vomiting, diarrhea or abdominal pain. REVIEW OF SYSTEMS Twelve-point review of systems on this patient is basically negative except as above. PAST MEDICAL HISTORY Significant for: 1. History of asthma. 2. History of COPD. 3. History of diabetes. 4. Morbid obesity. 5. Obstructive sleep apnea. 6. Seizure disorder. 7. Coronary disease. 8. Dyslipidemia. 9. Depression, anxiety. PAST SURGICAL HISTORY Significant for: 1. Cholecystectomy. 2. Oophorectomy. 3. Colonoscopy. CURRENT MEDICATIONS Include: 1. Sliding scale insulin. 2. Zithromax 500 mg IV daily. 3. Rocephin 1 gram IV daily. 4. Flonase spray. Unit #: [id number] #: [id number] Patient: LOLA ORDOÑEZ 5. Klonopin. 6. Glucotrol. 7. Dulera. 8. Solu-Medrol. 9. Combivent. 10. Seroquel. 11. Prozac. 12. Pepcid. 13. Acetazolamide. 14. Topamax. 15. Flonase. 16. Phenergan. 17. Stadol. 18. Proventil. 19. Amlodipine. ALLERGIES Sulfa. SOCIAL HISTORY No current history of tobacco, alcohol, or illicit drugs. FAMILY HISTORY Unremarkable. PHYSICAL EXAMINATION VITAL SIGNS: BP 117/69, heart rate 87, respirations 18, temperature 98.3. GENERAL: She is a 55-year-old obese female in no acute distress. HEENT: Head is atraumatic. Pupils equal, round, reactive to light and accommodation. Extraocular muscles are intact. Oropharynx is clear. NECK: Supple. No mass, no JVD, no bruits. LUNGS: Diminished bilaterally with diffuse expiratory wheezing bilaterally. HEART: S1, S2. No murmurs. ABDOMEN: Soft, obese, nontender. Bowel sounds are diminished. LOWER EXTREMITIES: Without any cyanosis, clubbing, or edema. NEUROLOGIC: Patient grossly intact, no focal deficits. DIAGNOSTIC STUDIES LABORATORY: Not drawn this morning. ASSESSMENT AND PLAN 1. Acute hypoxemic respiratory failure. Continue p.r.n. BiPAP. Continue bronchodilators. Continue IV steroids. 2. Acute exacerbation of asthma and chronic obstructive pulmonary disease as above. 3. History of nonobstructive coronary artery disease. Stable hemodynamics. 4. Hypertension, stable. 5. History of seizure disorder. Continue home medications. 6. Diabetes. the sliding scale. Consider basal insulin. 7. Anxiety, depression. Continue home medications. 8. Obstructive sleep apnea per Pulmonary. 9. Continue current GI and DVT prophylaxis. I would like to thank Dr. Snyder for allowing us to participate in this patient's care. We will follow along with you. Unit #: [id number] #: [id number] Patient: LOLA ORDOÑEZ Dictated by... Eder Chatterjee/roscoe TD: 07/29/2016 16:07 JOB #: [id number] CONSULTATION REPORT Page 1 of 1 X Rob Hines MD X CONSULTATION REPORT
--- NOTE | ~2016-07-27 | DS ---
Unit #: [id number] #: [id number] Patient: MALGORZATA MUÑOZ [id number] [address] [place], [place] [address] [id number] I MR#: [id number] NAME: MALGORZATA MUÑOZ ROOM: [facility] Age: 55 Sex: F Admission Date: 07/27/2016 : 1960 Discharge Date: 08/09/2016 Attending Physician: Russell Snyder M.D. Primary Care Physician: Patito Gutierrez M.D. DISCHARGE SUMMARY ADDENDUM DISCHARGE MEDICATIONS 1. Dulera 2 puffs twice a day. 2. Glucotrol 10 mg a day. 3. Victoza subcutaneously, as previous. 4. Glucophage as per previous home orders. 5. Albuterol as needed. 6. Veramyst nasal spray at night. 7. Topamax 200 mg twice a day. 8. PROzac 40 mg twice a day. 9. Phenergan p.r.n. 10. SEROquel 300 mg at bedtime. 11. Norvasc 10 mg a day. 12. Pepcid. She was on 10 mg once a day. She will continue that and follow up with her family physician for adjustment in doses if needed. 13. Please note that her Diamox was discontinued because she has a metabolic acidosis. FOLLOWUP 1. Dr. Snyder in 3-4 weeks. 2. Follow up with infectious disease as they desire. 3. Follow up with Dr. Gutierrez for general medical care. DESCRIPTION OF HOSPITALIZATION Apparently, she was discharged by Dr. Snyder on Tuesday. Discharge summary was dictated. They called Dr. William for some type of clarification of medication list. He said hold until the morning. Dr. Kuhn saw the patient over the weekend, adjusted her steroids to oral and discontinued her antibiotics. Ultimately, discontinued her prednisone. Chest x-ray was ordered and that was personally reviewed and was negative. At this point, she is stable for discharge. She is asking for discharge. She does have CPAP for her sleep apnea and I have asked her to continue that. There was some question of nocturnal ventilation, but her blood gas did not support its use. She had a pH of 7.34, pCO2 of 44, pO2 of 67. She currently is on room air. Overall, she was discharged in improved condition. Please see previous discharge summary for details of her previous hospital stay. Dictated by... Ranjit Haskins M.D. Unit #: [id number] #: [id number] Patient: MALGORZATA MUÑOZ FLACO/barvo TD: 08/10/2016 07:31 JOB #: [id number] CC: Lowell Heredia M.D. DISCHARGE SUMMARY Page 1 of 1 X Ranjit Haskins MD X DISCHARGE SUMMARY
--- NOTE | ~2016-07-27 | CO ---
Unit #: [id number] #: [id number] Patient: MALGORZATA MUÑOZ [id number] [address] [place], [place] [address] [id number] I MR#: [id number] NAME: MALGORZATA MUÑOZ. ROOM: 557 Age: 55 Sex: F Admission Date: 07/27/2016 : 1960 Attending Physician: Russell Snyder M.D. Primary Care Physician: Patito Gutierrez M.D. Consultation Date: 08/04/2016 CONSULTATION REPORT REASON FOR CONSULTATION Reactive HIV test. HISTORY OF PRESENT ILLNESS This is a pleasant 55-year-old female who has a history of COPD and asthma. Was admitted to the ICU secondary to acute exacerbation of asthma and COPD with bronchitis versus pneumonia. Patient has had some respiratory failure, and she was maintained on BiPAP; however, she was transferred out of the ICU and continued to improve on Rocephin and azithromycin. Patient does report some mild chest discomfort still at this time, but she reports her shortness of air is much improved, and she is able to speak in sentences without difficulty. Patient does have some intermittent cough. She denies any fevers, chills, nausea, vomiting or diarrhea. In discussion with the patient, she was unclear why the test was done, but it appears, per the chart review, it may have been a post exposure HIV test. In discussion with the patient at length, she had a for a long period of time, but he has since been for several years, but she denies any unprotected sex. Patient denies any IV drug abuse, any recent incarceration, any known exposure to persons with HIV. She denies any homelessness. She does not report any evidence of any blood transfusions. She denies any hepatitis C. PAST MEDICAL HISTORY 1. COPD. 2. Asthma. 3. Obesity. 4. Diabetes. 5. Seizure disorder. 6. Coronary artery disease. 7. Obstructive sleep apnea. 8. Dyslipidemia. 9. Depression and anxiety. PAST SURGICAL HISTORY 1. Cholecystectomy. 2. Oophorectomy. 3. Colonoscopy. ALLERGIES Sulfa, however, she does not report this as a true allergy. It is for Unit #: [id number] #: [id number] Patient: MALGORZATA MUÑOZ upset stomach. MEDICATIONS The patient is currently on azithromycin and Rocephin. For other medications, please refer to the patient's MAR. SOCIAL HISTORY Negative except for as previously mentioned in the history of present illness. She denies any IV drug abuse. She does not endorse any tobacco or alcohol. REVIEW OF SYSTEMS Negative except for as previously mentioned above. PHYSICAL EXAM VITAL SIGNS: Temperature 98, pulse 83, blood pressure 139/80, respiratory rate 18. GENERAL: This is a female in no apparent distress who is currently on oxygen but is not in any apparent distress. She is well nourished. HEENT: Her pupils are equal. NECK: Her neck is supple. CARDIOVASCULAR: S1, S2. Regular rate and rhythm. PULMONARY: Diminished in the bases but no significant wheezes or rhonchi noted. ABDOMEN: Positive bowel sounds. Soft and nontender. EXTREMITIES: No clubbing, cyanosis, edema or nonhealing wounds. DIAGNOSTIC STUDIES LABS: BUN 30, creatinine 0.6, sodium 142, potassium 4.2, chloride 113, CO2 23. White blood cell count 16.8 (the patient has been on steroids), hemoglobin 12.7, hematocrit 40.7, platelets 282. Hepatitis C and hepatitis B antigen are currently pending. HIV rapid test had a reactive antigen. October of 2015, patient was noted to have questionable lung nodule, and her fungal serology was negative. Blood cultures, 1 of 2, coagulase negative staph. IMPRESSION This is a 55-year-old female admitted to the hospital for COPD and asthma exacerbation with possible pneumonia. Patient has been in the hospital for approximately 1 week and appears to be doing better. She is out of the ICU. She is able to speak in sentences without difficulty and responding to antibiotic therapy administered by the pulmonary team. Patient appears to have had a routine blood draw for post exposure testing for HIV and had a reactive antigen. At this time patient does not show or exhibit any risk factors for HIV. At this time, no additional antibiotics are needed. Will follow up on the confirmation testing (Western blot). Will also check a CD4 and viral load. Counselling has been done with the patient, and this case will be discussed with Dr. Lowell Heredia. Patient did appear anxious during our exam, our discussion and continued to speak with patient and answered any questions that she had. Thank you for allowing us to participate in the care of this patient. Further recommendations to follow pending the patient's clinical course. Unit #: [id number] #: [id number] Patient: MALGORZATA MUÑOZ Dictated by..Lawrence Fonseca A.P.R.N. for Eder Hong/claire TD: 08/04/2016 10:42 JOB #: [id number] CONSULTATION REPORT Page 1 of 1 X X CONSULTATION REPORT
--- NOTE | ~2016-07-27 | US85 ---
[facility] A Service of [facility] RADIOLOGY TEXT RESULTS PATIENT: MALGORZATA MUÑOZ LOCATION: [place] [address] : [birth year] UNIT #: [id number] AGE: [address]: Russell Snyder MD SEX: F ORDER DR: [id number] [facility] [address] [facility]. [place], [place] [address] [id number] I MR#: [id number] Acc #: [id number] NAME: MALGORZATA MUÑOZ. : 1960 SEX: F STUDY DATE/TIME: 08/03/2016 17:58 UNIT: [facility] ROOM: [facility] STUDY DESCRIPTION: US LE Veins Unilat or Ltd Stdy Attending Physician: Russell Snyder M.D. Ordering Physician: Rob Hines M.D. Primary Care Physician: Patito Gutierrez M.D. MEDICAL IMAGING REPORT This report is preliminary unless electronic signature is present EXAM Unilateral left lower extremity venous Doppler. HISTORY Left leg swelling and pain for 1 day. COMPARISON None. TECHNIQUE Venous ultrasound examination of the left lower extremity was performed using grayscale, spectral Doppler and color flow Doppler imaging. FINDINGS The examination is negative. There is no evidence of left lower extremity deep venous thrombus from the groin to the lower calf. Visualized greater saphenous vein is also patent. IMPRESSION Negative examination. No evidence of left lower extremity deep venous thrombosis. Dictated by... Adan Ralph M.D. THIS IS AN ELECTRONICALLY VERIFIED REPORT Adan Ralph M.D. at 08/05/2016 3:58 PM TEV/psc TD: 08/03/2016 22:09 JOB #: [id number] [facility] A Service [facility] RADIOLOGY TEXT RESULTS PATIENT: MALGORZATA MUÑOZ LOCATION: [place] [address] : [birth year] UNIT #: [id number] AGE: [address]: Russell Snyder MD SEX: F ORDER DR: MEDICAL IMAGING REPORT Page 1 of 1 COPY
[~2016-07-27 17:28] MED LIST changes: +BUTORPHANOL10 MG/ML; +LORTAB 5-325 M1 EACH PO; +PROMETHAZINE-D473 ML PO; +VERAMYST10 GM; +VICTOZA0.6 MG/0.1 SUBQ; +XANAX0.5 MG PO
[2016-07-27 17:49] LABS: ARTERIAL BLD GAS O2 SATURATION 97.3 % (90.0-100.0); ARTERIAL BLOOD GAS CARBOXY HB 0.7 %sat (0.0-9.0); ARTERIAL BLOOD GAS HCO3 26.6 mmol/L; ARTERIAL BLOOD GAS MET HB 0.8 %sat (0.0-2.0); ARTERIAL BLOOD GAS pH 7.284 (7.350-7.450)
[2016-07-27 17:50] LABS: ARTERIAL BLOOD GAS ALLEN TEST NORMAL; ARTERIAL BLOOD GAS ART SITE RIGHT RADIAL; ARTERIAL BLOOD GAS DELIVERY SIMPLE OXYGEN MASK; ARTERIAL BLOOD GAS PCO2 56.2 mmHg (35.0-45.0); ARTERIAL DRAW? YES
[2016-07-27 18:07] LABS: BASOPHIL# 0.1 X10e3 (0-0.3); BASOPHIL% 0.9 % (0-2.5); EOSINOPHIL# 0.9 X10e3 (0-0.7); EOSINOPHIL% 5.9 % (0.0-7.0); HEMATOCRIT 45.7 % (35.0-45.0); HEMOGLOBIN 14.6 gm/dL (12.0-16.0); LYMPHOCYTE# 2.5 X10e3 (1.0-3.5); LYMPHOCYTE% 16.5 % (17.0-45.0); MEAN CELL VOLUME 90.6 FL (83-96); MEAN CORPUSCULAR HEMOGLOBIN 28.9 PG (28-34); MEAN CORPUSCULAR HGB CONC 31.9 g/dL (30-36); MEAN PLATELET VOLUME 7.6 FL (6.5-11.5); MONOCYTE# 0.8 X10e3 (0-1.0); NEUTROPHIL% 71.7 % (40-75); PLATELET COUNT 406 X10e3 (140-420); RED BLOOD COUNT 5.04 X10e (3.90-5.30); RED CELL DISTRIBUTION WIDTH 13.8 % (11.0-15.5); WHITE BLOOD COUNT 15.3 X10e3 (4.0-10.5)
[2016-07-27 18:09] LABS: DIFF IND YES
[2016-07-27 18:15] LABS: POC - CKMB 9.2 ng/mL (0.0-7.9); POC - TROPONIN <0.05 ng/mL (<=0.05)
[2016-07-27 18:26] LABS: PLATELET ESTIMATE INCREASED (NORMAL); RBC NORMAL YES
[2016-07-27 18:49] LABS: ALBUMIN SERUM 3.5 g/dL (3.5-5.0); BILIRUBIN, DIRECT 0.1 mg/dL (0.0-0.2); BILIRUBIN,INDIRECT 0.3 mg/dL (0.0-0.9); BILIRUBIN,TOTAL 0.4 mg/dL (0.2-2.0); BUN/CREATININE RATIO 11.42; CALCIUM SERUM 8.9 mg/dL (8.4-10.2); CREATININE SERUM 0.7 mg/dL (0.6-1.4); GLOM FILT RATE Estimated 98.2 mL/min (>60); POTASSIUM 3.5 mmol/L (3.5-5.1)
[2016-07-27 18:57] LABS: PROTHROMBIN TIME (PATIENT) 10.7 SECONDS (9.6-11.5)
[2016-07-28 09:51] LABS: ARTERIAL BLD GAS O2 SATURATION 96.6 % (90.0-100.0); ARTERIAL BLOOD GAS ALLEN TEST NORMAL; ARTERIAL BLOOD GAS ART SITE RIGHT RADIAL; ARTERIAL BLOOD GAS CARBOXY HB 0.2 %sat (0.0-9.0); ARTERIAL BLOOD GAS DELIVERY NASAL CANNULA; ARTERIAL BLOOD GAS HCO3 25.9 mmol/L; ARTERIAL BLOOD GAS MET HB 0.7 %sat (0.0-2.0); ARTERIAL BLOOD GAS PCO2 57.4 mmHg (35.0-45.0); ARTERIAL BLOOD GAS pH 7.264 (7.350-7.450); ARTERIAL DRAW? YES
[2016-07-30 03:36] LABS: ARTERIAL BLD GAS O2 SATURATION 92.2 % (90.0-100.0); ARTERIAL BLOOD GAS CARBOXY HB 1.2 %sat (0.0-9.0); ARTERIAL BLOOD GAS HCO3 24.9 mmol/L; ARTERIAL BLOOD GAS MET HB 1.1 %sat (0.0-2.0); ARTERIAL BLOOD GAS pH 7.324 (7.350-7.450)
[2016-07-30 03:37] LABS: ARTERIAL BLOOD GAS ALLEN TEST NORMAL; ARTERIAL BLOOD GAS ART SITE RIGHT RADIAL; ARTERIAL BLOOD GAS DELIVERY NASAL CANNULA; ARTERIAL DRAW? YES
[2016-07-30 05:40] LABS: BASOPHIL% 0.1 % (0-2.5); HEMOGLOBIN 13.1 gm/dL (12.0-16.0); LYMPHOCYTE# 0.8 X10e3 (1.0-3.5); LYMPHOCYTE% 5.9 % (17.0-45.0); MEAN CELL VOLUME 91.8 FL (83-96); MEAN CORPUSCULAR HEMOGLOBIN 29.4 PG (28-34); MEAN PLATELET VOLUME 7.9 FL (6.5-11.5); MONOCYTE# 0.4 X10e3 (0-1.0); MONOCYTE% 3.4 % (3.0-12.0); NEUTROPHIL# 11.6 X10e3 (1.5-7.1); NEUTROPHIL% 90.6 % (40-75); PLATELET COUNT 329 X10e3 (140-420); RED BLOOD COUNT 4.46 X10e (3.90-5.30); RED CELL DISTRIBUTION WIDTH 13.9 % (11.0-15.5); WHITE BLOOD COUNT 12.9 X10e3 (4.0-10.5)
[2016-07-30 05:42] LABS: DIFF IND NO
[2016-07-30 06:28] LABS: BUN/CREATININE RATIO 32.5; CALCIUM SERUM 8.7 mg/dL (8.4-10.2); CREATININE SERUM 0.8 mg/dL (0.6-1.4); GLOM FILT RATE Estimated 83.7 mL/min (>60)
[2016-08-04 08:02] LABS: HEMATOCRIT 40.7 % (35.0-45.0); HEMOGLOBIN 12.7 gm/dL (12.0-16.0); MEAN CELL VOLUME 92.8 FL (83-96); MEAN CORPUSCULAR HGB CONC 31.2 g/dL (30-36); MEAN PLATELET VOLUME 7.9 FL (6.5-11.5); RED BLOOD COUNT 4.38 X10e (3.90-5.30); RED CELL DISTRIBUTION WIDTH 14.8 % (11.0-15.5); WHITE BLOOD COUNT 16.8 X10e3 (4.0-10.5)
[2016-08-04 08:30] LABS: CALCIUM SERUM 8.9 mg/dL (8.4-10.2); CREATININE SERUM 0.6 mg/dL (0.6-1.4); GLOM FILT RATE Estimated 103.3 mL/min (>60); POTASSIUM 4.2 mmol/L (3.5-5.1)
[2016-08-04 10:07] LABS: TMH HEPATITIS B SURFACE AG -JH Negative (Negative); TMH HEPATITIS C AB - JH Negative (Negative)
[2016-08-04 14:51] LABS: HEP B VIRUS DNA - VIRAL LOAD REFERENCE
[2016-08-05 05:22] LABS: HEMATOCRIT 39.5 % (35.0-45.0); HEMOGLOBIN 12.4 gm/dL (12.0-16.0); MEAN CELL VOLUME 92.2 FL (83-96); MEAN CORPUSCULAR HGB CONC 31.4 g/dL (30-36); MEAN PLATELET VOLUME 7.7 FL (6.5-11.5); RED BLOOD COUNT 4.29 X10e (3.90-5.30); RED CELL DISTRIBUTION WIDTH 14.5 % (11.0-15.5); WHITE BLOOD COUNT 14.3 X10e3 (4.0-10.5)
[2016-08-05 06:22] LABS: BLOOD UREA NITROGEN 28 mg/dL (9-23); CALCIUM SERUM 8.8 mg/dL (8.4-10.2); CARBON DIOXIDE 21 mmol/L (22-31); CHLORIDE 110 mmol/L (100-111); CREATININE SERUM 0.8 mg/dL (0.6-1.4); GLOM FILT RATE Estimated 83.7 mL/min (>60); GLUCOSE FASTING 353 mg/dL (70-110); POTASSIUM 4.6 mmol/L (3.5-5.1); SODIUM 138 mmol/L (135-145)
[2016-08-05 06:31] LABS: PROCALCITONIN <0.05 NG/ML
[2016-08-06 07:31] LABS: BUN/CREATININE RATIO 45.71; CALCIUM SERUM 8.7 mg/dL (8.4-10.2); CREATININE SERUM 0.7 mg/dL (0.6-1.4); GLOM FILT RATE Estimated 98.2 mL/min (>60); POTASSIUM 4.7 mmol/L (3.5-5.1)
[2016-08-06 12:46] LABS: CD4 % (PNL) 53 % (30-61)
[2016-08-07 17:36] LABS: ARTERIAL BLOOD GAS CARBOXY HB 0.5 %sat (0.0-9.0); ARTERIAL BLOOD GAS HCO3 23.9 mmol/L; ARTERIAL BLOOD GAS MET HB 0.9 %sat (0.0-2.0); ARTERIAL BLOOD GAS PCO2 44.2 mmHg (35.0-45.0); ARTERIAL BLOOD GAS pH 7.342 (7.350-7.450)
[2016-08-07 17:37] LABS: ARTERIAL BLOOD GAS ALLEN TEST N; ARTERIAL BLOOD GAS ART SITE RIGHT RADIAL; ARTERIAL BLOOD GAS PO2 66.8 mmHg (80.0-100); ARTERIAL DRAW? YES
[2016-08-09 06:39] LABS: HEMATOCRIT 39.8 % (35.0-45.0); HEMOGLOBIN 12.5 gm/dL (12.0-16.0); MEAN CELL VOLUME 92.2 FL (83-96); MEAN CORPUSCULAR HGB CONC 31.5 g/dL (30-36); MEAN PLATELET VOLUME 7.2 FL (6.5-11.5); RED BLOOD COUNT 4.32 X10e (3.90-5.30); WHITE BLOOD COUNT 17.1 X10e3 (4.0-10.5)
[2016-08-09 06:46] LABS: BUN/CREATININE RATIO 44.28; CALCIUM SERUM 8.6 mg/dL (8.4-10.2); CREATININE SERUM 0.7 mg/dL (0.6-1.4); GLOM FILT RATE Estimated 98.2 mL/min (>60); POTASSIUM 3.7 mmol/L (3.5-5.1)
[2016-08-09 08:42] LABS: HIV1 LOG COPIES/ML <1.30 (<1.30); HIV1COPIES/ML <20 (<20)
[2016-08-09] MEDS ORDERED: DULERA 200 MCG/13 GM INH (13:50)
== END 2016-08-09 15:24 | disposition home or self-care (01) | DRG 189 ==
LOC: CED 17:28 → CEDOF 19:12 → CED 19:49 → CICCU2 19:49 → CEDOF 19:49 → CICCU2 21:32 → CEDOF 21:32 → C5B 07-29 14:18
PROVIDERS: Emergency Medicine; Hospitalist; Internal Medicine; Internal Medicine Pulmonary Disease; Nurse Practitioner Family
PROC: 05H533Z Insertion of Infusion Device into Right Subclavian Vein, Percutaneous Approach (ICD-10-PCS; principal; 2016-07-30)
PROC: B546ZZA Ultrasonography of Right Subclavian Vein, Guidance (ICD-10-PCS; 2016-07-30)
DX: J96.21 Acute and chronic respiratory failure with hypoxia (principal); E87.2 Acidosis; J44.1 Chronic obstructive pulmonary disease with (acute) exacerbation; J45.901 Unspecified asthma with (acute) exacerbation; Z99.81 Dependence on supplemental oxygen; E11.65 Type 2 diabetes mellitus with hyperglycemia; Z68.41 Body mass index [BMI] 40.0-44.9, adult; G47.33 Obstructive sleep apnea (adult) (pediatric); E66.01 Morbid (severe) obesity due to excess calories; G40.909 Epilepsy, unspecified, not intractable, without status epilepticus; F41.9 Anxiety disorder, unspecified; F32.9 Major depressive disorder, single episode, unspecified; I25.10 Atherosclerotic heart disease of native coronary artery without angina pectoris; E78.5 Hyperlipidemia, unspecified; Z90.49 Acquired absence of other specified parts of digestive tract; Z88.2 Allergy status to sulfonamides; Z79.84 Long term (current) use of oral hypoglycemic drugs; Z87.891 Personal history of nicotine dependence; T38.0X5A Adverse effect of glucocorticoids and synthetic analogues, initial encounter; J96.02 Acute respiratory failure with hypercapnia
CPT/HCPCS: 36600; 71010; 71020; 80048; 80076; 82308; 82553; 82803; 82947; 83036; 83605; 83880; 84484; 85025; 85027; 85610; 86361; 86701; 86702; 86803; 87040; 87340; 87517; 87536; 87806; 93005; 93971; 94640; 94660; 94664; 94760; 96374; 97165; 99291; J0456; J0696; J1815; J2920; J2930

== ENCOUNTER → 2016-12-03 | Outpatient (CLI) | payer OTHER ==
[~2016-12-03] MED LIST changes: +DULERA 200 MCG/13 GM INH
--- NOTE | ~2016-12-03 | CT57 ---
[facility] A Service of [facility] RADIOLOGY TEXT RESULTS PATIENT: MALGORZATA MUÑOZ LOCATION: [facility] : 62 UNIT #: [id number] AGE: [address]: Russell Snyder SEX: F ORDER DR: [id number] [facility]. [place], [place] [address] [id number] O MR#: [id number] Acc #: [id number] NAME: MALGORZATA MUÑOZ : 1960 SEX: F STUDY DATE/TIME: 12/03/2016 14:25 UNIT: [facility] ROOM: STUDY DESCRIPTION: CT Chest Wo Cont Attending Physician: Russell Snyder M.D. Referring Physician: Russell Snyder M.D. Ordering Physician: Russell Snyder M.D. Primary Care Physician: Patito Gutierrez M.D. MEDICAL IMAGING REPORT This report is preliminary unless electronic signature is present EXAM CT chest INDICATION Pulmonary nodule. Restaging. Shortness of air for [address] of the thorax without contrast. Coronal and sagittal reconstructions were obtained. This CT exam was performed with one or more of the following radiation dose reduction techniques: Automatic exposure control, adjustment of mA and/or kV according to patient size, and iterative reconstruction. COMPARISONS CT thorax 06/04/2016, 11/10/2015 and 03/30/2014. FINDINGS There is a 0.7 mm mixed solid and ground-glass nodule in the right lower lobe (image 41). This pulmonary nodule is unchanged from at least November of 2013 indicative of a benign granuloma. No new pulmonary opacities. Central airways are patent. No pathologically enlarged mediastinal or hilar lymph nodes. No pericardial or pleural effusion. No acute osseous abnormalities. IMPRESSION 1. Benign solid and ground-glass nodule in the right lower lobe is unchanged from at least 2013. 2. No new findings in the chest. [facility] A Service of [facility] RADIOLOGY TEXT RESULTS PATIENT: MALGORZATA MUÑOZ LOCATION: [facility] : 62 UNIT #: [id number] AGE: [address]: Russell Snyder SEX: F ORDER DR: Dictated by... Ramirez Muñoz M.D. THIS IS AN ELECTRONICALLY VERIFIED REPORT Ramirez Muñoz M.D. at 12/06/2016 11:48 AM HASEEB/chel TD: 12/06/2016 10:35 JOB #: [id number] MEDICAL IMAGING REPORT Page 1 of 1 COPY
== END | disposition home or self-care (01) ==
LOC: CCAT 12-02 14:00
DX: R91.1 Solitary pulmonary nodule (principal)
CPT/HCPCS: 71250